=== PATIENT | female | born 1950 | race Caucasian/White ===

== ENCOUNTER → 2021-03-28 08:53 | Outpatient (CLI) | payer OTHER | END | disposition home or self-care (01) | LOC: MAMO-SONO 08:45 → SONOGRAMA 08:53 | DX: R10.84 Generalized abdominal pain (principal); R94.6 Abnormal results of thyroid function studies; D69.1 Qualitative platelet defects; Z11.52 Encounter for screening for COVID-19; R76.0 Raised antibody titer; K75.4 Autoimmune hepatitis; Z11.4 Encounter for screening for human immunodeficiency virus [HIV]; D68.8 Other specified coagulation defects ==

== ENCOUNTER 2021-09-12 09:07 | Outpatient (CLI) | payer OTHER | END 2021-09-12 09:12 | disposition home or self-care (01) | LOC: SONOGRAMA 09:07 | DX: D69.6 Thrombocytopenia, unspecified (principal); B96.81 Helicobacter pylori [H. pylori] as the cause of diseases classified elsewhere ==